=== PATIENT | female | born 1995 | race Hispanic/Latino ===

== ENCOUNTER 2021-09-28 11:35 | Outpatient (CLI) | payer OTHER | END 2021-09-28 11:36 | disposition home or self-care (01) | LOC: CSHLAB 11:35 | PROVIDERS: ATTEND Obstetrics & Gynecology | DX: Z20.822 Contact with and (suspected) exposure to COVID-19 (principal) | CPT/HCPCS: 87811 ==

== ENCOUNTER 2021-10-01 06:00 | Inpatient (IN) | payer OTHER ==
[~2021-10-01 06:00] MED LIST: Acetaminophen 500 MG TAB PO PRN; Butorphanol Tartrate 1 MG/ML VIAL SLOW IVP PRN; Carboprost 250 MCG/ML AMP IM PRN; Diphenoxylate HCl/Atropine Tablet PO PRN; HYDROcodone/Acetaminophen 5/325 mg Tablet PO PRN; Ibuprofen 800 MG TAB PO PRN; Lactated Ringer's 1,000 ML IV SCH; Lidocaine 1% (PF) 30 ML VIAL SC PRN; Methylergonovine 0.2 MG/ML VIAL IM PRN; Misoprostol 200 MCG TAB PR PRN; NS w/ Oxytocin 30 units 500 ML IV SCH; Ondansetron PF 4 MG/2 ML Vial IVP PRN; Promethazine HCl 25 MG/ML VIAL IM PRN; hydrALAZINE 20 MG/ML VIAL SLOW IVP PRN
[2021-10-01 06:29] VITALS: BMI 22.4
[2021-10-01 07:10] LABS: Hemoglobin 10.9 g/dL (12.0-15.5); Mean Corpuscular HGB CONC 33.1 g/dL (32.0-36.0); Mean Corpuscular Hemoglobin 28.9 pg (27.0-33.0); Mean Corpuscular Volume 87.3 fl (81.6-98.3); Mean Platelet Volume 11.1 fl (7.4-10.4); Platelet Count 242 10x3/uL (150-450); RBC Distribution Width 13.5 % (11.5-14.5); Red Blood Cell (RBC) Count 3.77 10x6/uL (3.90-5.03); White Blood Cell (WBC) Count 7.1 10x3/uL (3.5-10.5)
[2021-10-01] MEDS ORDERED: Bupivacaine 0.25% HCL 30 ML VIAL ONE (08:00)
[2021-10-01] MEDS ORDERED: Fentanyl 2 mcg/Bup 0.1% Cadd 100 ML ONE (09:23)
[2021-10-01 09:51] LABS: Hep B Surf Ag Non-Reactive S/CO (NonReactive)
[2021-10-01 09:52] LABS: Syphilis Antibody Nonreactive (Nonreactive); Syphilis Antibody Index 0.34 S/CO (<1.00 Non-Reactive)
[2021-10-01] MEDS ORDERED: ePHEDrine Sulfate 50 MG/10 ML VIAL SLOW IVP PRN (09:52)
[2021-10-01] MEDS ORDERED: Acetaminophen 325 MG TAB PO PRN (09:52)
[2021-10-01] MEDS ORDERED: Promethazine HCl 25 MG/ML VIAL IM PRN ×2 (09:52→13:20)
[2021-10-01] MEDS ORDERED: Ondansetron PF 4 MG/2 ML Vial IVP PRN ×2 (09:52→13:20)
[2021-10-01] MEDS ORDERED: Moisturizing Cream (Eucerin) 113 GM JAR TOP PRN (09:52)
[2021-10-01] MEDS ORDERED: diphenhydrAMINE 50 MG/ML VIAL IVP PRN (09:52)
[2021-10-01] MEDS ORDERED: Naloxone HCl 0.4 mg/ml Vial IVP PRN ×2 (09:52)
[2021-10-01] MEDS ORDERED: Lactated Ringer's 500 ML IV PRN (09:52)
[2021-10-01] MEDS ORDERED: Fentanyl 2 mcg/Bupivacaine 0.1% Cassette 100 ML EPIDURAL SCH (10:00)
[2021-10-01] MEDS ORDERED: Communication Order-Pharmacy FS SCH (10:00)
[2021-10-01 10:09] LABS: HBSAg Index 0.17 S/CO (0-0.99)
[2021-10-01] MEDS ORDERED: diphenhydrAMINE 25 MG CAP PO PRN (13:20)
[2021-10-01] MEDS ORDERED: Zolpidem Tartrate 5 MG TAB PO PRN (13:20)
[2021-10-01] MEDS ORDERED: NS w/ Oxytocin 30 units 500 ML IV SCH (13:20)
[2021-10-01] MEDS ORDERED: Varicella virus, LIVE 0.5 ML VIAL SC ONE (13:20)
[2021-10-01] MEDS ORDERED: Preparation H Ointment 28 GM TUBE PR PRN (13:20)
[2021-10-01] MEDS ORDERED: HYDROcodone/Acetaminophen 5/325 mg Tablet PO PRN (13:20)
[2021-10-01] MEDS ORDERED: Boostrix 0.5 ML (Tdap) VIAL IM ONE (13:20)
[2021-10-01] MEDS ORDERED: Benzocaine-Menthol 82.5 ML CAN TOP PRN (13:20)
[2021-10-01] MEDS ORDERED: Lanolin Ointment 7 GM TUBE TOP PRN (13:20)
[2021-10-01] MEDS ORDERED: hydrALAZINE 20 MG/ML VIAL SLOW IVP PRN (13:20)
[2021-10-01] MEDS ORDERED: Bisacodyl 10 MG SUPP PR PRN (13:20)
[2021-10-01] MEDS ORDERED: Milk Of Magnesia 30 ML UDCUP PO PRN (13:20)
[2021-10-01] MEDS ORDERED: Misoprostol 200 MCG TAB VAG PRN (13:20)
[2021-10-01] MEDS ORDERED: Methylergonovine 0.2 MG/ML VIAL IM PRN (13:20)
[2021-10-01] MEDS ORDERED: Measles/Mumps/Rubella 10 MCG/0.5 ML VIAL SC ONE (13:20)
[2021-10-01] MEDS: Ibuprofen 800 MG TAB PO SCH ×2 (15:38→21:42)
[2021-10-01] MEDS: Ferrous Sulfate 325 MG TAB PO SCH (15:57)
[2021-10-01] MEDS: Docusate 100 MG CAP PO SCH (21:42)
[2021-10-02] MEDS: Ibuprofen 800 MG TAB PO SCH ×2 (04:27→14:28)
[2021-10-02 05:38] LABS: Hemoglobin 10.7 g/dL (12.0-15.5); Mean Corpuscular HGB CONC 33.4 g/dL (32.0-36.0); Mean Corpuscular Hemoglobin 28.7 pg (27.0-33.0); Mean Corpuscular Volume 85.8 fl (81.6-98.3); Platelet Count 228 10x3/uL (150-450); RBC Distribution Width 13.7 % (11.5-14.5); Red Blood Cell (RBC) Count 3.73 10x6/uL (3.90-5.03); White Blood Cell (WBC) Count 9.1 10x3/uL (3.5-10.5)
[2021-10-02 08:07] VITALS: BP 110/71; TEMP 98.3
[2021-10-02] MEDS: Ferrous Sulfate 325 MG TAB PO SCH ×2 (08:43→16:05)
[2021-10-02] MEDS: Docusate 100 MG CAP PO SCH (08:46)
[2021-10-02] MEDS ORDERED: Prenatal Vitamin 1 TAB PO SCH (09:00)
== END 2021-10-02 16:08 | disposition home or self-care (01) | DRG 807 ==
LOC: CSHLD 06:05 → CSHPP 15:20
PROVIDERS: ADMIT Obstetrics & Gynecology; ATTEND Obstetrics & Gynecology
PROC: 10E0XZZ Delivery of Products of Conception, External Approach (ICD-10-PCS; principal; 2021-10-01)
DX: O80 Encounter for full-term uncomplicated delivery (principal); Z37.0 Single live birth; Z3A.39 39 weeks gestation of pregnancy
CPT/HCPCS: 36415; 51702; 85027; 86780; 86850; 86900; 86901; 87340; J2590; S0020